=== PATIENT | female | born 1965 | race Caucasian/White ===

== ENCOUNTER → 2016-09-30 | Outpatient (CLI) | payer OTHER ==
[~2016-09-30] VITALS: Ht 160 cm; Wt 95.3 kg
[~2016-09-30] MED LIST: ADVIL,NUPRIN,M200 MG PO; GRALISE600 MG PO; HYDROCODON-ACE1 EAC7 PO; LEXAPRO20 MG PO; LIORESAL10 MG PO; MULTI-DAY VITA1 EACH PO; NORVASC10 MG PO; PRINIVIL10 MG PO; RITALIN5 MG PO; Vicodin,Lortab 5/500 PO; Vitamin D PO; Zestoretic,Prinzide PO
== END | disposition home or self-care (01) ==
LOC: AMB 09:57
PROC: 0WJP8ZZ Inspection of Gastrointestinal Tract, Via Natural or Artificial Opening Endoscopic Approach (ICD-10-PCS; principal; 2016-09-30)
DX: Z12.11 Encounter for screening for malignant neoplasm of colon (principal); K64.9 Unspecified hemorrhoids; I10 Essential (primary) hypertension; M19.90 Unspecified osteoarthritis, unspecified site; K21.9 Gastro-esophageal reflux disease without esophagitis
CPT/HCPCS: 93005; B4087